=== PATIENT | female | born 1965 | race Caucasian/White ===

== ENCOUNTER 2025-03-08 12:09 | Outpatient (AMB) | payer OTHER, SELFPAY ==
--- OUTSIDE RECORDS SUMMARY | 2023-09-06 04:30 | XMS_ITS ---
Author Organization [facility] [place] Address [address] [place] [address] Care Team Providers Care Military Personnel Specialist Name Role Phone Migration, Provider Unavailable Unavailable REASON FOR VISIT Follow-up Appt Encounters Encounter Location Date Provider Diagnosis [facility], [address] [place] [address] 09/06/2023 Provider Migration Plan Of Treatment Next Appt Details Provider Name:Yocasta Nolan, 04/24/2025 11:30:00 AM, [address] [place] [address], [address], [place], [address], [phone] Progress Notes * JULIA MESSERDOB: [birth year] (59 yo F)Acc No.[id number]:09/06/2023 Progress Notes Patient: ASHLY ALBERTOANNETTE Provider: Lanie Fong :1965 A ge:58 Y S ex:Female Date:09/06/2023 Address:[address] [place] [address] [address] [facility] Subjective: * Chief Complaints: * F ollow-up Appt * Ocular Surgical History: Objective: Vision Examination: * Electronic signature of Prov ider Migration on 03/08/2025 at 03:05 PM EST Sign off status: Pending * Provider: Lanie green Migration Date: 09/06/2023 Generated for Gregorio cottrell/Cary/eTrebekasmitting on: 05/08/2024 03:05 PM EST
--- OUTSIDE RECORDS SUMMARY | 2023-09-15 05:30 | XMS_ITS ---
Author Organization [facility] [place] Address [address] [facility] [address] [facility] [place] [address] Care Team Providers Care Food Service Attendant Name Role Phone Migration, Provider Unavailable Unavailable REASON FOR VISIT Follow-up Appt Encounters Encounter Location Date Provider Diagnosis [facility], [address] [place] [address] 09/15/2023 Provider Migration Plan Of Treatment Next Appt Details Provider Name:Yocasta Nolan, 04/24/2025 11:30:00 AM, [address] [place] [address], [address], [place], [address], [phone] Progress Notes * JULIA MESSERDOB: [birth year] (59 yo F)Acc No.[id number]:09/15/2023 Progress Notes Patient: ASHLY ALBERTOANNETTE Provider: Lanie Fong :1965 A ge:58 Y S ex:Female Date:09/15/2023 Address:[address] [place] [address] [facility] Subjective: * Chief Complaints: * F ollow-up Appt * Ocular Surgical History: Objective: Vision Examination: * Electronic signature of Prov ider Migration on 03/08/2025 at 03:07 PM EST Sign off status: Pending * Provider: Lanie green Migration Date: 09/15/2023 Generated for Gregorio cottrell/Cary/Kathrynsmitting on: 05/08/2024 03:07 PM EST
--- OUTSIDE RECORDS SUMMARY | 2024-09-19 06:15 | XMS_ITS ---
Author Organization [facility] [place] Address [address] [facility] [place] [address] Care Team Providers Care Extension Service Supervisor Name Role Phone Herbert Randhawa Unavailable [phone] REASON FOR VISIT Sick Visit Encounters Encounter Location Date Provider Diagnosis [facility], [address] [place] [address] 09/19/2024 Herbert Randhawa Plan Of Treatment Next Appt Details Provider Name:Yocasta Nolan, 04/24/2025 11:30:00 AM, [address] [place] [address], [address] [facility], [place], [address], [phone] Progress Notes * GUIHAWKAGATADOB: [birth year] (59 yo F)Acc No.[id number]:09/19/2024 Progress Notes Patient: JULIA ALBERTO Provider: Donna JAIN :1965 A ge:59 Y S ex:Female Date:09/19/2024 Address:[address] [facility] Subjective: * Chief Complaints: * S ick Visit * Ocular Surgical History: Objective: Vision Examination: * Electronic signature of Evan Randhawa PA-C on 03/08/2025 at 03:07 PM EST Sign off status: Pending * Provider: Donna JAIN Date: 09/19/2024 Generated for Printi ng/Faalyg/eTransmitting on: 1 05/08/2024 03:07 PM EST
--- OUTSIDE RECORDS SUMMARY | 2024-09-29 07:30 | XMS_ITS ---
Author Organization [facility] [place] Address [address] [place] [address] Care Team Providers Care Sewage Plant Attendant Name Role Phone Migration, Provider Unavailable Unavailable REASON FOR VISIT Follow-up Appt Encounters Encounter Location Date Provider Diagnosis [facility], [address] [place] [phone] 09/29/2024 Provider Migration Plan Of Treatment Next Appt Details Provider Name:Yocasta Nolan, 04/24/2025 11:30:00 AM, [address] [place] [address], [address], [place], [address], [phone] Progress Notes * JULIA MESSERDOB: [birth year] (59 yo F)Acc No.[id number]:09/29/2024 Progress Notes Patient: ASHLY ALBERTOANNETTE Provider: Lanie Fong :1965 A ge:59 Y S ex:Female Date:09/29/2024 Address:[address] [place], [place] [address] [address] [facility] Subjective: * Chief Complaints: * F ollow-up Appt * Ocular Surgical History: Objective: Vision Examination: * Electronic signature of Prov ider Migration on 03/08/2025 at 03:06 PM EST Sign off status: Pending * Provider: Lanie green Migration Date: 09/29/2024 Generated for Gregorio cottrell/Cary/Kathrynsmitting on: 05/08/2024 03:06 PM EST
--- OUTSIDE RECORDS SUMMARY | 2025-01-22 06:30 | XMS_ITS ---
Author Organization [facility] [place] Address [address] [place] [address] [address] [place] [address] Care Team Providers Care Manager Pricing Name Role Phone Yocasta Nolan Unavailable [phone] Allergies Allergen (clinical drug ingredient) Drug/Non Drug Allergy documented on EMR Reaction Allergy Type Onset Date Status Penicillin Unknown Drug Allergy Active REASON FOR VISIT I stopped taking my Simvastatin Medications Medication SIG (Take, Route, Frequency, Duration) Notes Start Date End Date Status Ergocalciferol 1.25 MG (24523 UT) Capsule 1 capsule Orally once a week; Duration: 90 days 01/22/2025 Active SUMAtriptan Active Simvastatin 20 MG Tablet 1 tablet in the evening Orally Once a day 01/22/2025 Active Lexapro 10 MG Tablet 1 tablet Orally Onc e a day Active Social History Section Notes: N/A to the above. Problems Problem Type SNOMED Code ICD Code Onset Dates Problem Status W/U Status Risk Notes Problem Vitamin deficiency (78239545) Vitamin deficiency, unspecified (E56.9) Active confirmed Vital Signs Blood pressure systolic 135 mm Hg 01/23/20 25 Blood pressure diastolic 80 mm Hg 025 Heart Rate 73 /min 01/22/2025 Respiratory Rate 19 /min 01/22/2025 Weight 153.2 lbs 01/22/2025 Oximetry 98 % 01/22/2025 Weight-kg 69.49 kg 01/22/2025 Encounters Encounter Location Date Provider Diagnosis [address] [place] [address] 01/22/2025 Yocasta Garlandrick Vitamin deficiency, unspecified E56.9 Assessments Encounter Date Diagnosis (ICD Code) Assessment Notes Treatment Notes Treatment Clinical Notes Section Notes 01/22/2025 Vitamin deficiency, unspecified (ICD-10 - E56.9) Plan Of Treatment Medication Medication Name Sig Start Date Stop Date Notes Ergocalciferol 1.25 MG (5000 0 UT) Capsule 1 capsule Orally once a week; Duration: 90 days 01/22/2025 Next Appt Details Provider Name:Yocasta Nolan, 04/24/2025 11:30:00 AM, [address] [facility], [address], [place], [address], [phone] History and Physical Notes * HPI (History of Present Illness) Category Sub-Category Detail Notes Category Not es General Pt is a 59yo female w/ medical hx of - Patient reports weight concerns and high triglycerides from last blood tests in August. - Patient had bladder issue in August, initially suspected UTI, now resolved. 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 - Reports not regularly taking Simvastatin previously, now resumed after bad blood results. - Mentions dietary habits: high bread intake, snacks often, mentions meals include sauces, meatballs. - Denies taking vitamin D despite low levels in the past. - No known allergies (NKA). Objective: - Triglycerides: 503 mg/dL. - HDL cholesterol: 46 mg/dL (normal range). - Total cholesterol: 317 mg/dL. - Vitamin D: very low, specific value not mentioned. - A1C indicates no diabetes. Assessment: - Hypertriglyceridemia - Vitamin D deficiency Plan: - Continue Simvastatin 20 mg as previously prescribed. - Prescribe Ergocalciferol 50,000 units, one pill per week for vitamin D deficiency. - Encourage dietary modifications, refer to business travel consultant for dietary advice. - Discuss potential use of weight loss medication (Zepbound program info provided). - Schedule follow-up lab tests and telehealth appointment in one week, and in-office visit in three months to recheck labs including cholesterol, vitamin D, and thyroid function. - Provided information for weight management program with potential cost. Progress Notes * JULIA MESSERDOB: [birth year] (59 yo F)Acc No.[id number]:01/22/2025 Progress Notes Patient: JULIA ALBERTO Provider: Marlene bynum Ovidio :1965 A ge:59 Y S ex:Female Date:01/22/2025 [address] [facility] Subjective: * Chief Complaints: * I stopped taking my Simvastatin * HPI: G eneral: Pt is a 59yo female w/ medical hx of - Patient reports weight concerns and high triglycerides from last blood tests in August. - Patient had bladder issue in August, initially suspected UTI, now resolved. 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 - Reports not regularly taking Simvastatin previously, now resumed after bad blood results. - Mentions dietary habits: high bread intake, snacks often, mentions meals include sauces, meatballs. - Denies taking vitamin D despite low levels in the past. - No known allergies (NKA). Objective: - Triglycerides: 503 mg/dL. - HDL cholesterol: 46 mg/dL (normal range). - Total cholesterol: 317 mg/dL. - Vitamin D: very low, specific value not mentioned. - A1C indicates no diabetes. Assessment: - Hypertriglyceridemia - Vitamin D deficiency Plan: - Continue Simvastatin 20 mg as previously prescribed. - Prescribe Ergocalciferol 50,000 units, one pill per week for vitamin D deficiency. - Encourage dietary modifications, refer to business travel consultant for dietary advice. - Discuss potential use of weight loss medication (Zepbound program info provided). - Schedule follow-up lab tests and telehealth appointment in one week, and in- office visit in three months to recheck labs including cholesterol, vitamin D, and thyroid function. - Provided information for weight management program with potential cost. * Surgical History: rotator cuff * Family History: F ather: , diagnosed with Heart disease. M other: alive. 1 brother(s) , 3 sister(s) - healthy. 1 son(s) - healthy. . No Healthcare Proxy. Dad-passed heart attack. * Social History: N /A to the above. * Medications: T akingSimvastatin 20 MG Tablet 1 tablet in the evening Orally Once a day SUMAtriptan Lexapro 10 MG Tablet 1 tablet Orally Once a day Taking Simvastatin 20 MG Tablet 1 tablet in the evening Orally Once a day Taking SUMAtriptan Taking Lexapro 10 MG Tablet 1 tablet Orally Once a day DiscontinuedEscitalopram Oxalate 20 MG Tablet 1 tablet Orally Once a day Discontinued Escitalopram Oxalate 20 MG Tablet 1 tablet Orally Once a day * Allergies: P enicillinyesAllergies Verified. Objective: * Vitals: B P:135/80mm Hg, HR:73/min, RR:19/min, Oxygen sat %:98%, Wt:153.2lbs, Wt-k.49 kg. Assessment: * Assessment: 1. V itamin deficiency, unspecified - E56.9 Plan: * Treatment: * Electronic signature of Juanita her Nolan on 03/08/2025 at 03:06 PM EST Sign off status: Pending * Provider: Marlene Nolan Date: 0 01/22/2025 Generated for Gregorio cottrell/Cary/Edwin on: 1 05/08/2024 03:06 PM EST
--- OUTSIDE RECORDS SUMMARY | 2025-02-05 10:30 | XMS_ITS ---
Author Organization [facility] [place] Address [address] [address] [place] [address] Care Team Providers Care Cabinet Assembler Name Role Phone Yocasta Nolan Unavailable [phone] REASON FOR VISIT Tele visit medication management Medications Medication SIG (Take, Route, Frequency, Duration) Notes Start Date End Date Status Simvastatin 20 MG Tablet 1 tablet in the evening Orally Once a day 01/22/2025 Active Ergocalciferol 1.25 MG (11549 UT) Capsule 1 capsule Orally once a week; Duration: 90 days 01/22/2025 Active SUMAtriptan Active Lexapro 10 MG Tablet 1 tablet Orally Onc e a day Active Encounters Encounter Location Date Provider Diagnosis [facility], [address] [place] [address] 02/05/2025 Yocasta Sagrick Plan Of Treatment Next Appt Details Provider Name:Yocasta Nolan, 04/24/2025 11:30:00 AM, [address] [place] [address], [address] [facility], [place], [address], [phone] Progress Notes * JULIA MESSERDOB: [birth year] (59 yo F)Acc No.[id number]:02/05/2025 Patient: HAWK ALBERTOETTE Provider: Marlene Nolan :1965 A ge:59 Y S ex:Female Date:02/05/2025 Address[facility] [facility] Subjective: * Chief Complaints: * T lola visit medication management * Medications: T akingErgocalciferol 1.25 MG (25443 UT) Capsule 1 capsule Orally once a week Simvastatin 20 MG Tablet 1 tablet in the evening Orally Once a day SUMAtriptan Lexapro 10 MG Tablet 1 tablet Orally Once a day Taking Ergocalciferol 1.25 MG (33841 UT) Capsule 1 capsule Orally once a week Taking Simvastatin 20 MG Tablet 1 tablet in the evening Orally Once a day Taking SUMAtriptan Taking Lexapro 10 MG Tablet 1 tablet Orally Once a day * Electronic signature of Juanita her Nolan on 03/08/2025 at 03:07 PM EST Sign off status: Pending * Provider: Marlene Nolan Date: Generated for Gregorio cottrell/Cary/Edwin on: 05/08/2024 03:07 PM EST
--- NOTE | 2025-03-08 12:14 | A.OFFVIS_ITS ---
Intake Visit Reasons: 6m Allergies Penicillins Allergy (Unknown, Verified 03/08/25 12:15) Unknown Medication List - Last Reconciled 03/08/25 by Citlali Ma CNP ergocalciferol (vitamin D2) 1,250 mcg PO QWEEK escitalopram oxalate 10 mg PO DAILY simvastatin 20 mg PO DAILY sumatriptan succinate take 1 tab at onset of headache; if no relief, may repeat 1 tab after at least 2 hrs; max = 2 tabs/24 hrs PO 30 days HPI Comments Details: She was doing okay. Migraines are about the same. Frequency varies, usually gets few migraines back to back and then goes some time without any. Using 1/2 tab of sumatriptan as needed with good relief. Triggers include chocolate, lack of sleep, and stress. Some stress. Her 93-year-old mother with dementia was in memory care unit and was doing okay. Working from home. Sleep was okay. She started having migraine type headaches in the early 30s. She gets no aura. She has a strong family history of migraine. On average, she uses 5-6 Sumatriptan / month. She is menopausal since her mid 30s. [facility] Medical History (Updated 03/08/25 @ 12:18 by Citlali Ma CNP) Hyperlipidemia Anxiety Family History (Updated 03/08/25 @ 12:17 by Citlali Ma CNP) Mother Dementia Sister Headache Paternal Grandmother Headache Father Headache Review of Systems Const Denies chills, Denies daytime sleepiness, Denies difficulty sleeping, Denies fatigue, Denies fever(s), Denies frequent falls, Denies headache(s), Denies increased appetite, Denies poor appetite, Denies snoring, Denies weakness, Denies weight gain and Denies weight loss Eyes Denies loss of vision ENT Denies vertigo, Denies dizziness, Denies headache(s) and Denies neck pain Card Denies chest pain at rest, Denies chest pain with activity, Denies syncope, Denies leg edema, Denies palpitations, Denies dyspnea and Denies dyspnea on exertion Resp Denies cough, Denies dyspnea, Denies dyspnea on exertion and Denies snoring GI Denies abdominal pain, Denies constipation, Denies heartburn, Denies diarrhea and Denies nausea Denies urinary frequency, Denies urinary incontinence and Denies urinary urgency Musc Denies abnormal gait, Denies back pain, Denies myalgias, Denies arthralgias, Denies neck pain, Denies numbness and Denies tingling Neuro Denies abnormal gait, Denies vertigo, Denies dizziness, Denies syncope, Denies frequent falls, Denies headache(s), Denies lack of coordination, Denies loss of vision, Denies memory loss, Denies numbness, Denies Other visual disturbances, Denies restless legs, Denies seizure-like activity, Denies tingling, Denies paresthesias, Denies tremor(s) and Denies weakness Psych Denies anxiety, Denies depression, Denies auditory hallucinations, Denies memory loss and Denies visual hallucinations Endo Denies fatigue and Denies palpitations Physical Exam Const Other: General Appearance:? normal, in no acute distress. Heart:? S1, S2 normal, no murmurs. Lungs:? clear anteriorly and posteriorly. Musculoskeletal:? normal. Extremities:? no edema. Psych:? alert, oriented, cognitive function intact, cooperative with exam. Neuro Other: Abnormal Neurological Findings:?none.? Mental Status: alert and oriented X 3. Normal attention, orientation, memory, and affect. Cranial Nerves: Pupils are equal, round, and reactive to light. External ocular muscles are intact. Visual green are full, no ptosis. Face is symmetrical, no facial weakness or droop. Facial sensations are normal. Tongue protrudes in midline. Palate elevates symmetrically. Shoulder shrugging is normal Motor Examination: Normal muscle tone, bulk and strength. No atrophy or fasciculations. No drift of the extended upper extremities. DTR 2+. Plantars are flexor. Sensory Exam: Normal light touch, temperature, pinprick, vibration, and joint- position sensations. Rhomberg sign is absent. Coordination: No ataxia. No titubation. Gait Exam: Within normal limits. Cerebellar Signs: Pgkkui-ro-ohqa is okay. Extrapyramidal System: No tremor, rigidity with normal facial expressions. No bradykinesia. No bradyphrenia. Normal arm swing and posture. No propulsion or retropulsion. Speech: Normal. Assessment & Plan Assessment & Plan (1) Migraine: Code(s): G43.909 - Migraine, unspecified, not intractable, without status migrainosus Category: Medical Qualifiers: Migraine type: unspecified Status migrainosus presence: without status migrainosus Intractability: not intractable Qualified Code(s): G43.909 - Migraine, unspecified, not intractable, without status migrainosus Plan: Continue sumatriptan 100mg 1 tablet as needed for migraine. Coding Level of Care Code Est Pt Level 3 (12028) Diagnoses Migraine without status migrainosus, not intractable, unspecified migraine type G43.909 Migraine type: unspecified Status migrainosus presence: without status migrainosus Intractability: not intractable
--- OUTSIDE RECORDS SUMMARY | 2025-03-08 15:06 | XMS_ITS ---
[facility] Name [facility] Care Team Organization Name Specialty Phone Email Start Date End Da te [facility] 03/10/2022 [facility]
--- OUTSIDE RECORDS SUMMARY | 2025-03-08 15:07 | XMS_ITS | Patient Health Record ---
Author Organization [facility] [place] Address [address] [address] [address] [facility] [address] [place] [address] Care Team Providers Care Terminal Carman Name Role Phone Herbert Randhawa Unavailable [phone] Migration, Provider Unavailable Unavailable Yocasta Nolan Unavailable [phone] Allergies Allergen (clinical drug ingredient) Drug/Non Drug Allergy documented on EMR Reaction Allergy Type Onset Date Status Penicillin Unknown Drug Allergy Active Reason For Referral No Information Medications Medication SIG (Take, Route, Frequency, Duration) Notes Start Date End Date Status Simvastatin 20 MG Tablet 1 tablet in the evening Orally Once a day 01/22/2025 Active Ergocalciferol 1.25 MG (38700 UT) Capsule 1 capsule Orally once a week; Duration: 90 days 01/22/2025 Active SUMAtriptan Active Lexapro 10 MG Tablet 1 tablet Orally Onc e a day Active Social History Section Notes: N/A to the above. Problems Problem Type SNOMED Code ICD Code Onset Dates Problem Status W/U Status Risk Notes Problem Vitamin deficiency (99252231) Vitamin deficiency, unspecified (E56.9) Active confirmed Vital Signs Heart Rate 73 /min 01/22/2025 Respiratory Rate 19 /min 01/22/2025 Oximetry 98 % 01/22/2025 Blood pressure diastolic 80 mm Hg 01/22/2025 Weight-kg 69.49 kg 01/22/2025 Blood pressure systolic 135 mm Hg 01/22/2025 Weight 153.2 lbs 01/22/2025 Encounters Encounter Location Date Provider Diagnosis [facility] [address] [address] 09/19/2024 Herbert Randhawa [facility] [address] [address] 09/29/2024 Provider Migration [address] [address] [place] [address] 01/22/2025 Yocasta Nolan Vitamin deficiency, unspecified E56.9 [facility], [address] [place] [address] 02/05/2025 Yocasta Nolan Assessments Encounter Date Diagnosis (ICD Code) Assessment Notes Treatment Notes Treatment Clinical Notes Section Notes 01/22/2025 Vitamin deficiency, unspecified (ICD-10 - E56.9) Plan Of Treatment Next Appt Details Provider Name:Yocasta Nolan, 04/24/2025 11:30:00 AM, [address] [place] [address], [address], [place], [address], [phone] Insurance Providers Payer Name Payer Address Payer Phone Subscriber Number Group Number Insured Name Patient Relationship to Insured Coverage Start Date Coverage End Date [facility] [address] [place] [address] [id number] JULIA MESSER Self - patient is the insured Medical (General) History Surgical History Surgery Date(Month/Year) rotator cuff
--- OUTSIDE RECORDS SUMMARY | 2025-03-08 15:07 | XMS_ITS | Clinical Summary ---
Author Organization [facility] Address [address] [place] [address] Care Team Providers Care Painter Supervisor Name Role Phone Wilmar Barcenas MD Primary Care Provider [phone] Social History Tobacco Use Types Packs/Day Years Used Date Smoking Tobacco: Never Assessed Comments Unknown Sex and Gender Information Value Date Recorded Sex Assigned at Not on file Legal Sex Female 1:23 PM EST Gender Identity Not on file Sexual Orientation Not on file Plan of Treatment Health Maintenance Due Date Last Done Comments Hepatitis C Virus Screening 1965 HIV Screening 1980 DTaP/Tdap/Td Vaccines (1 - Tdap) 1986 Hepatitis B Vaccines (1 of 3 - 19+ 3-dose series) 03/03 Pneumococcal Vaccines 50+ (1 of 1 - PCV) 2017 Zoster (Shingles) Vaccine (1 of 2) 2017 COVID-19 Vaccine (1 - season) 2025 RSV Vaccine 50 years and old er and Patients (1 - 1-dose 75+ series) 2042 Care Teams Painter Supervisor Relationship Specialty Start Date End Date Wilmar Barcenas MD [address] [place] [id number] PCP - General Family Medicine 05/09/21
--- OUTSIDE RECORDS SUMMARY | 2025-03-08 15:07 | XMS_ITS | Encounter Summary ---
Author Organization [facility] Address [address] [place] [address] Care Team Providers Care Kinesiology Professor Name Role Phone Herbert Randhawa Primary Care Provider [phone] Encounter Details Date Type Department Care Team (Late st Contact Info) Description 09/19/2024 Lab Requisition [facility] - Main Lab [address] [facility] [place] [id number] Herbert Randhawa PA [address] [facility] [address] [place] [address] Urinary tract infection, site not specified; Hyperlipidemia, unspecified; Other care home (current) drug therapy; Vitamin D deficiency, unspecified Social History Tobacco Use Types Packs/Day Years Used Date Smoking Tobacco: Never Assessed Comments Unknown Sex and Gender Information Value Date Recorded Sex Assigned at Female 10/06/2024 2:25 PM EDT Legal Sex Female 1:51 AM EST Gender Identity Female 10/06/2024 2:25 PM EDT Sexual Orientation Not on file documented as of this encounter Plan of Treatment Not on file documented as of this encounter Procedures Procedure Name Priority Date/Time Associated Diagnosis Comments URINALYSIS WITH REFLEX MICROSCOPIC AND CULTURE Routine 09/19/2024 12:00 AM EDT Urinary tract infection, site not specified Hyperlipidemia, unspecified Other care home (current) drug therapy Vitamin D deficiency, unspecified ERICKSON URINE CULTURE TUBE Routine 09/19/2024 12:00 AM EDT Urinary tract infection, site not specified Hyperlipidemia, unspecified Other care home (current) drug therapy Vitamin D deficiency, unspecified SST - GOLD Routine 09/19/2024 12:00 AM EDT Urinary tract infection, site not specified Hyperlipidemia, unspecified Other care home (current) drug therapy Vitamin D deficiency, unspecified LIPID PANEL WITH REFLEX TO DIRECT LDL Routine 09/19/2024 12:00 AM EDT Urinary tract infection, site not specified Hyperlipidemia, unspecified Other care home (current) drug therapy Vitamin D deficiency, unspecified CBC WITH AUTO DIFFERENTIAL Routine 09/19/2024 12:00 AM EDT Urinary tract infection, site not specified Hyperlipidemia, unspecified Other terminal block assembler (current) drug therapy Vitamin D deficiency, unspecified YELLOW URINE NO ADDITIVE Routine 09/19/2024 12:00 AM EDT Urinary tract infection, site not specified Hyperlipidemia, unspecified Other terminal block assembler (current) drug therapy Vitamin D deficiency, unspecified VITAMIN D 25 HYDROXY Routine 09/19/2024 12:00 AM EDT Urinary tract infection, site not specified Hyperlipidemia, unspecified Other care home (current) drug therapy Vitamin D deficiency, unspecified URINALYSIS WITH REFLEX MICROSCOPIC AND CULTURE Routine 09/19/2024 12:00 AM EDT Urinary tract infection, site not specified Hyperlipidemia, unspecified Other terminal block assembler (current) drug therapy Vitamin D deficiency, unspecified CBC AND DIFFERENTIAL Routine 09/19/2024 12:00 AM EDT Urinary tract infection, site not specified Hyperlipidemia, unspecified Other terminal block assembler (current) drug therapy Vitamin D deficiency, unspecified C-REACTIVE PROTEIN Routine 09/19/2024 12 :00 AM EDT Urinary tract infection, site not specified Hyperlipidemia, unspecified Other care home (current) drug therapy Vitamin D deficiency, unspecified THYROID STIMULATING HORMONE Routine 09/19/2024 12:00 AM EDT Urinary tract infection, site not specified Hyperlipidemia, unspecified Other care home (current) drug therapy Vitamin D deficiency, unspecified THYROXINE FREE Routine 09/19/2024 12:00 AM EDT Urinary tract infection, site not specified Hyperlipidemia, unspecified Other terminal block assembler (current) drug therapy Vitamin D deficiency, unspecified MAGNESIUM Routine 09/19/2024 12:00 AM EDT Urinary tract infection, site not specified Hyperlipidemia, unspecified Other terminal block assembler (current) drug therapy Vitamin D deficiency, unspecified LDL CHOLESTEROL, DIRECT Routine 09/19/2024 12:00 AM EDT Urinary tract infection, site not specified Hyperlipidemia, unspecified Other terminal block assembler (current) drug therapy Vitamin D deficiency, unspecified HEMOGLOBIN A1C Routine 09/19/2024 12:00 AM EDT Urinary tract infection, site not specified Hyperlipidemia, unspecified Other terminal block assembler (current) drug therapy Vitamin D deficiency, unspecified VITAMIN B12 Routine 09/19/2024 12:00 AM EDT Urinary tract infection, site not specified Hyperlipidemia, unspecified Other terminal block assembler (current) drug therapy Vitamin D deficiency, unspecified COMPREHENSIVE METABOLIC PANEL Routine 09/19/2024 12:00 AM EDT Urinary tract infection, site not specified Hyperlipidemia, unspecified Other terminal block assembler (current) drug therapy Vitamin D deficiency, unspecified documented in this encounter Results * (ABNORMAL) LDL cholesterol, direct (09/19/2024 12:00 AM EDT) LDL Direct 160(H) <=100 mg/dL LAB CHEMISTRY METHOD 09/19/2024 8:09 PM EDT [facility] Blood Venous blood specimen / Unknown 09/19/2024 09/19/2024 6:09 PM EDT us Herbert JAIN LAB BLOOD ORDERABLES Final Res ult [facility] [address] [place] [address], [place] [phone] * Yellow urine no additive (09/19/2024 12:00 AM EDT) Extra Tube Hold for add-ons. 09/19/2024 8:01 PM EDT [facility] Comment:Auto resulted. Urine Urine specimen obtained by clean catch procedure / Unknown 09/19/2024 09/19/2024 6:44 PM EDT us Herbert JAIN LAB URINE ORDERABLES Final Res ult [facility] [address] [place] [address], [place] [phone] * Erickson urine culture tube (09/19/2024 12:00 AM EDT) Extra Tube Hold for add-ons. 09/19/2024 8:01 PM EDT [facility] Comment:Auto resulted. Urine Urine specimen obtained by clean catch procedure / Unknown 09/19/2024 09/19/2024 6:44 PM EDT us Herbert JAIN LAB URINE ORDERABLES Final Res ult [facility] [address] [place] [address], [place] [phone] * SST tube (09/19/2024 12:00 AM EDT) Extra Tube Hold for add-ons. 09/19/2024 8:01 PM EDT [facility] Comment:Auto resulted. Blood Venous blood specimen / Unknown 09/19/2024 09/19/2024 6:44 PM EDT us Herbert JAIN LAB BLOOD ORDERABLES Final Res ult [facility] [address] [place] [address], [place] [phone] * Urinalysis with reflex microscopic and culture (09/19/2024 12:00 AM EDT) Specific [place] Urine 1.022 1.003 - 1.030 LAB URINALYSIS - AUTOMATED METHOD 09/19/2024 7:23 PM [facility] pH, Urine 5.5 5.0 - 8.0 pH LAB URINALYSIS - AUTOMATED METHOD 09/19/2024 7:23 PM [facility] Leukocytes, Urine Negative Negative LAB URINALYSIS - AUTOMATED METHOD 09/19/2024 7:23 PM [facility] Nitrite, Urine Negative Negative LAB URINALYSIS - AUTOMATED METHOD 09/19/2024 7:23 PM [facility] Protein, Urine Negative <=Trace mg/dL LAB URINALYSIS - AUTOMATED METHOD 09/19/2024 7:23 PM [facility] Glucose, Urine Negative Negative mg/dL LAB URINALYSIS - AUTOMATED METHOD 09/19/2024 7:23 PM [facility] Ketones, Urine Negative Negative mg/dL LAB URINALYSIS - AUTOMATED METHOD 09/19/2024 7:23 PM [facility] Urobilinogen, Urine 0.2 0.2 - 1.0 mg/dL LAB URINALYSIS - AUTOMATED METHOD 09/19/2024 7:23 PM [facility] Bilirubin, Urine Negative Negative LAB URINALYSIS - AUTOMATED METHOD 09/19/2024 7:23 PM [facility] Blood, Urine Negative Negative LAB URINALYSIS - AUTOMATED METHOD 09/19/2024 7:23 PM [facility] Urine Urine specimen obtained by clean catch procedure / Unknown 09/19/2024 09/19/2024 6:09 PM EDT us Herbert JAIN LAB URINE ORDERABLES Final Res ult [facility] [address] [place] [address], [place] [phone] * (ABNORMAL) CBC auto differential (09/19/2024 12:00 AM EDT) WBC 4.7(L) 4.8 - 10.8 K/mcL LAB HEMETOLOGY METHOD 09/19/2024 7:22 PM EDT [facility] RBC 4.60 3.80 - 4.80 M/mcL LAB HEMETOLOGY METHOD 09/19/2024 7:22 PM EDT [facility] Hemoglobin 12.8 11.5 - 16.0 g/dL LAB HEMETOLOGY METHOD 09/19/2024 7:22 PM EDT [facility] Hematocrit 39.6 35.0 - 47.0 % LAB HEMETOLOGY METHOD 09/19/2024 7:22 PM EDT [facility] MCV 86.8 79.0 - 98.0 FL LAB HEMETOLOGY METHOD 09/19/2024 7:22 PM EDT [facility] MCH 28.1 27.0 - 32.0 pcg LAB HEMETOLOGY METHOD 09/19/2024 7:22 PM EDT [facility] MCHC 32.3 32.0 - 37.0 g/dL LAB HEMETOLOGY METHOD 09/19/2024 7:22 PM EDT [facility] RDW 13.8 11.0 - 15.0 % LAB HEMETOLOGY METHOD 09/19/2024 7:22 PM EDT [facility] Platelets 249 130 - 400 K/mcL LAB HEMETOLOGY METHOD 09/19/2024 7:22 PM EDT [facility] MPV 10.8 7.0 - 11.0 FL LAB HEMETOLOGY METHOD 09/19/2024 7:22 PM [facility] NRBC 0.0 <1.0 % LAB HEMETOLOGY METHOD 09/19/2024 7:22 PM [facility] NRBC Absolute 0.00 <0.10 K/mcL LAB HEMETOLOGY METHOD 09/19/2024 7:22 PM [facility] Neutrophils Relative 48.5 % LAB HEMETOLOGY METHOD 09/19/2024 7:22 PM [facility] Lymphocytes Relative 42.3 % LAB HEMETOLOGY METHOD 09/19/2024 7:22 PM [facility] Monocytes Relative 6.6 % LAB HEMETOLOGY METHOD 09/19/2024 7:22 PM [facility] Eosinophils Relative 1.7 % LAB HEMETOLOGY METHOD 09/19/2024 7:22 PM [facility] Basophils Relative 0.9 % LAB HEMETOLOGY METHOD 09/19/2024 7:22 PM [facility] Immature Granulocytes Relative 0.0 % LAB HEMETOLOGY METHOD 09/19/2024 7:22 PM [facility] Neutrophils Absolute 2.28 1.50 - 7.00 K/mcL LAB HEMETOLOGY METHOD 09/19/2024 7:22 PM [facility] Lymphocytes Absolute 1.99 1.00 - 5.00 K/mcL LAB HEMETOLOGY METHOD 09/19/2024 7:22 PM [facility] Monocytes Absolute 0.31 0.20 - 1.00 K/mcL LAB HEMETOLOGY METHOD 09/19/2024 7:22 PM [facility] Eosinophils Absolute 0.08 0.00 - 0.50 K/mcL LAB HEMETOLOGY METHOD 09/19/2024 7:22 PM [facility] Basophils Absolute 0.04 0.00 - 0.20 K/mcL LAB HEMETOLOGY METHOD 09/19/2024 7:22 PM EDT [facility] Immature Granulocytes Absolute 0.00 0.00 - 0.03 K/[facility] LAB HEMETOLOGY METHOD 09/19/2024 7:22 PM EDT [facility] Blood Venous blood specimen / Unknown 09/19/2024 09/19/2024 6:09 PM EDT us Herbert JAIN LAB BLOOD ORDERABLES Final Res ult [facility] [address] [place] [address], [place] [phone] * (ABNORMAL) Vitamin D 25 hydroxy (09/19/2024 12:00 AM EDT) Vit D, 25-Hydroxy 8.7(L) 30.0 - 80.0 ng/mL LAB CHEMISTRY METHOD 09/19/2024 7:59 PM EDT [facility] Blood Venous blood specimen / Unknown 09/19/2024 09/19/2024 6:09 PM EDT us Herbert JAIN LAB BLOOD ORDERABLES Final Res ult [facility] [address] [place] [address], [place] [phone] * Thyroid stimulating hormone (09/19/2024 12:00 AM EDT) TSH 1.03 0.40 - 4.00 mcIU/mL LAB CHEMISTRY METHOD 09/19/2024 7:58 PM EDT [facility] Blood Venous blood specimen / Unknown 09/19/2024 09/19/2024 6:09 PM EDT us Herbert JAIN LAB BLOOD ORDERABLES Final Res ult Performing Organization Address [facility]/ZIP Co de Phone Number [facility] [address] [place] [address], * Magnesium (09/19/2024 12:00 AM EDT) Magnesium 2.1 1.9 - 2.6 mg/dL LAB CHEMISTRY METHOD 09/19/2024 7:36 PM EDT [facility] Blood Venous blood specimen / Unknown 09/19/2024 09/19/2024 6:09 PM EDT Herbert JAIN LAB BLOOD ORDERABLES Final Res ult Performing Organization Address [facility] de Phone Number [facility] [address] [place] [address], * Hemoglobin A1c (09/19/2024 12:00 AM EDT) [facility] Signature Hemoglobin A1C 5.1 <6.5 % LAB CHEMISTRY METHOD 09/22/2024 10:44 AM EDT [facility] Mean Bld Glu Estim. 100 mg/dL LAB CHEMISTRY METHOD 09/22/2024 10:44 AM EDT [facility] Blood Venous blood specimen / Unknown 09/19/2024 09/19/2024 6:09 PM EDT Herbert JAIN LAB BLOOD ORDERABLES Final Res ult Performing Organization Address [facility]/ZIP Co de Phone Number [facility] [address] [place] [address], [place] [phone] * Thyroxine free (09/19/2024 12:00 AM EDT) Free T4 1.25 0.70 - 1.80 ng/dL LAB CHEMISTRY METHOD 09/19/2024 7:58 PM EDT [facility] Blood Venous blood specimen / Unknown 09/19/2024 09/19/2024 6:09 PM EDT us Herbert JAIN LAB BLOOD ORDERABLES Final Res ult Performing Organization Address City/[facility]/ZIP Co de Phone Number [facility] [address] [place] [address], [place] [phone] * C-reactive protein (09/19/2024 12:00 AM EDT) [facility] C-Reactive Protein <0.29 <=0.50 mg/dL LAB CHEMISTRY METHOD 09/19/2024 7:36 PM EDT [facility] Blood Venous blood specimen / Unknown 09/19/2024 09/19/2024 6:09 PM EDT Herbert JAIN LAB BLOOD ORDERABLES Final Res ult Performing Organization Address [facility]/ZIP Co de Phone Number [facility] [address] [place] [address], [place] [phone] * Vitamin B12 (09/19/2024 12:00 AM EDT) [facility] Vitamin B-12 531 250 - 900 pcg/mL LAB CHEMISTRY METHOD 09/19/2024 7:58 PM EDT [facility] Blood Venous blood specimen / Unknown 09/19/2024 09/19/2024 6:09 PM EDT us Herbert JAIN LAB BLOOD ORDERABLES Final Res ult Performing Organization Address City/[facility]/ZIP Co de Phone Number [facility] [address] [place] [address], [place] [phone] * (ABNORMAL) Lipid panel with reflex to direct LDL (09/19/2024 12:00 AM EDT) Cholesterol 317(H) 0 - 200 mg/dL LAB CHEMISTRY METHOD 09/19/2024 7:58 PM EDT [facility] Triglycerides 503(H) 0 - 150 mg/dL LAB CHEMISTRY METHOD 09/19/2024 7:58 PM EDT [facility] HDL 46 >=40 mg/dL LAB CHEMISTRY METHOD 09/19/2024 7:58 PM EDT [facility] LDL Calculated LAB CHEMISTRY METHOD 09/19/2024 7:58 PM EDT [facility] Comment: Unable to calculate when triglycerides >400 mg/dL. Triglyceride value is >= 500. Calculated LDL is not meaningful. Direct LDL has been added. VLDL Cholesterol Lul LAB CHEMISTRY METHOD 09/19/2024 7:58 PM EDT [facility] Comment:Unable to calculate when triglycerides >400 mg/dL. Non HDL Chol. (LDL+VLDL) LAB CHEMISTRY METHOD 09/19/2024 7:58 PM EDT [facility] Comment:Unable to calculate when triglycerides >400 mg/dL. Chol/HDL Ratio 6.9(H) 0.0 - 4.4 LAB CHEMISTRY METHOD 09/19/2024 7:58 PM EDT [facility] Blood Venous blood specimen / Unknown 09/19/2024 09/19/2024 6:09 PM EDT us Herbert JAIN LAB BLOOD ORDERABLES Final Res ult [facility] [address] [place] [address], [place] [phone] * (ABNORMAL) Comprehensive metabolic panel (09/19/2024 12:00 AM EDT) Pathologist [facility] Sodium 138 133 - 145 mmol/L LAB CHEMISTRY METHOD 09/19/2024 7:58 PM EDT [facility] Potassium 3.9 3.5 - 5.5 mmol/L LAB CHEMISTRY METHOD 09/19/2024 7:58 PM [facility] Chloride 104 96 - 110 mmol/L LAB CHEMISTRY METHOD 09/19/2024 7:58 PM [facility] CO2 29 21 - 32 mmol/L LAB CHEMISTRY METHOD 09/19/2024 7:58 PM [facility] Anion Gap 5 3 - 11 LAB CHEMISTRY METHOD 09/19/2024 7:58 PM [facility] Glucose 93 70 - 100 mg/dL LAB CHEMISTRY METHOD 09/19/2024 7:58 PM [facility] BUN 19 5 - 25 mg/dL LAB CHEMISTRY METHOD 09/19/2024 7:58 PM [facility] Creatinine 0.71 0.50 - 1.10 mg/dL LAB CHEMISTRY METHOD 09/19/2024 7:58 PM [facility] eGFR 99 >=60 mL/min/1. 73m2 LAB CHEMISTRY METHOD 09/19/2024 7:58 PM [facility] Comment:Calculation based on the Chronic Kidney Disease Epidemiology Collaboration (CKD-EPI) equation refit without adjustment for race. BUN/Creatinine Ratio 26.8 LAB CHEMISTRY METHOD 09/19/2024 7:58 PM [facility] Calcium 8.9 8.5 - 10.5 mg/dL LAB CHEMISTRY METHOD 09/19/2024 7:58 PM [facility] AST (SGOT) 24 10 - 42 unit/L LAB CHEMISTRY METHOD 09/19/2024 7:58 PM [facility] ALT (SGPT) 20 10 - 60 unit/L LAB CHEMISTRY METHOD 09/19/2024 7:58 PM [facility] Alkaline Phosphatase 115 42 - 121 unit/L LAB CHEMISTRY METHOD 09/19/2024 7:58 PM [facility] Total Protein 8.1(H) 6.0 - 8.0 g/dL LAB CHEMISTRY METHOD 09/19/2024 7:58 PM EDT [facility] Albumin 4.3 3.2 - 5.0 g/dL LAB CHEMISTRY METHOD 09/19/2024 7:58 PM EDT [facility] Total Bilirubin 0.4 0.0 - 1.4 mg/dL LAB CHEMISTRY METHOD 09/19/2024 7:58 PM EDT [facility] Blood Venous blood specimen / Unknown 09/19/2024 09/19/2024 6:09 PM EDT us Herbert JAIN LAB BLOOD ORDERABLES Final Res ult [facility] [address] [place] [address], [place] [phone] documented in this encounter Visit Diagnoses Diagnosis Urinary tract infection, site not specified Hyperlipidemia, unspecified Other care home (current) drug therapy Vitamin D deficiency, unspecified documented in this encounter Care Teams Kinesiology Professor Relationship Specialty Start Date End Date Herbert Randhawa PA [facility] [address] [place] [id number] PCP - General Primary Care 10/02/24 documented as of this encounter
--- OUTSIDE RECORDS SUMMARY | 2025-03-08 15:08 | XMS_ITS | Encounter Summary ---
Author Organization [facility] Address [address] [place] [address] Care Team Providers Care Field Map Technician Name Role Phone Wilmar Barcenas MD Primary Care Provider [phone] Encounter Details Date Type Department Care Team (Late st Contact Info) Description 06/23/2021 Scanned Document GENERIC EXTERNAL DATA DEPARTMENT Wilmar Barcenas MD [address] [address] Social History Tobacco Use Types Packs/Day Years Used Date Smoking Tobacco: Never Assessed Comments Unknown Sex and Gender Information Value Date Recorded Sex Assigned at Not on file Legal Sex Female 1:23 PM EST Gender Identity Not on file Sexual Orientation Not on file documented as of this encounter Plan of Treatment Not on file documented as of this encounter Visit Diagnoses Not on filedocumented in this encounter Care Teams Field Map Technician Relationship Specialty Start Date End Date Wilmar Barcenas MD [address] [address] PCP - General Family Medicine 05/09/21 documented as of this encounter
--- OUTSIDE RECORDS SUMMARY | 2025-03-08 15:08 | XMS_ITS | Clinical Summary ---
Author Organization [address] Address [address] [place] [phone] Phone Care Team Providers Care Quality Nurse Name Role Phone Herbert Randhawa Primary Care Provider [phone] Social History Tobacco Use Types Packs/Day Years Used Date Smoking Tobacco: Never Assessed Comments Unknown Sex and Gender Information Value Date Recorded Sex Assigned at Female 10/06/2024 2:25 PM EDT Legal Sex Female 1:51 AM EST Gender Identity Female 10/06/2024 2:25 PM EDT Sexual Orientation Not on file Plan of Treatment Health Maintenance Due Date Last Done Comments Colorectal Cancer Screening: Colonoscopy 1967 DTaP,Tdap,and Td Vaccines (1 - Tdap) 1986 Hepatitis B Vaccines (1 of 3 - 19+ 3-dose series) 1986 Cervical Cancer Screening: Pap Smear 1988 Pneumococcal Vaccine: 50+ Years (1 of 1 - PCV) 2017 Zoster Vaccines (1 of 2) 2017 HIV Screening 04/05/2022 Hepatitis C Screening 04/05/2022 Social Influencers of Health Screening 04/05/2022 Depression Screening 05/03/2024 COVID-19 Vaccine ( season) 2025 02/23/2022, 03/24/2021, 07/21/2020, Additional history exists Influenza Vaccine (#1) 2025 , 03/08/2023, 01/23/2022, Additional history exists Breast Cancer Screening 03/02/2026 03/02/20 24, 11/20/2022, 11/17/2021, Additional history exists Cholesterol Screening (Lipid Panel) 01/22/2030 01/22/2025, 09/19/2024, 09/19/2024 RSV Immunization Adult Patients (1 - 1-dose 75+ series) 2042 MMR Vaccines Aged Out 11/06/2018 No longer eligi ble based on patient's age to complete this topic HIB Vaccines Aged Out No longer eligi ble based on patient's age to complete this topic HPV Vaccines Aged Out No longer eligi ble based on patient's age to complete this topic Hepatitis A Vaccines Aged Out No long er eligible based on patient's age to complete this topic IPV Vaccines Aged Out No longer eligi ble based on patient's age to complete this topic Meningococcal ACWY Vaccine Aged Out N o longer eligible based on patient's age to complete this topic Meningococcal B Vaccine Aged Out No l onger eligible based on patient's age to complete this topic RSV Immunization Patients Under 20 months Aged Out No longer eligible based on patient's age to complete this topic Varicella Vaccines Aged Out No longer eligible based on patient's age to complete this topic Procedures Procedure Name Priority Date/Time Associated Diagnosis Comments VITAMIN D 25 HYDROXY Routine 01/22/2025 12:19 PM EDT Encounter for general adult medical examination with abnormal findings Hyperlipemia Myxedema heart disease Avitaminosis D THYROID STIMULATING HORMONE Routine 01/22/2025 12:19 PM EDT Encounter for general adult medical examination with abnormal findings Hyperlipemia Myxedema heart disease Avitaminosis D THYROXINE FREE Routine 01/22/2025 12:19 PM EDT Encounter for general adult medical examination with abnormal findings Hyperlipemia Myxedema heart disease Avitaminosis D COMPLETE BLOOD COUNT Routine 01/22/2025 12:19 PM EDT Encounter for general adult medical examination with abnormal findings Hyperlipemia Myxedema heart disease Avitaminosis D LIPID PANEL WITH REFLEX TO DIRECT LDL Routine 01/22/2025 12:19 PM EDT Encounter for general adult medical examination with abnormal findings Hyperlipemia Myxedema heart disease Avitaminosis D COMPREHENSIVE METABOLIC PANEL Routine 01/22/2025 12:19 PM EDT Encounter for general adult medical examination with abnormal findings Hyperlipemia Myxedema heart disease Avitaminosis D MADHURI SCREENING DIGITAL Routine 03/02/2024 3:26 PM EDT from Last 3 Months or Most Recently Relevant to Health Maintenance Results * (ABNORMAL) Lipid panel with reflex to direct LDL (01/22/2025 12:19 PM EDT) Cholesterol 250(H) 0 - 200 mg/dL LAB CHEMISTRY METHOD 01/22/2025 3:35 PM EDT [facility] Triglycerides 446(H) 0 - 150 mg/dL LAB CHEMISTRY METHOD 01/22/2025 3:35 PM [facility] HDL 39(L) >=40 mg/dL LAB CHEMISTRY METHOD 01/22/2025 3:35 PM T [facility] LDL Calculated 122(H) 0 - 100 mg/dL LAB CHEMISTRY METHOD 01/22/2025 3:35 PM T [facility] Comment: Unable to calculate when triglycerides >400 mg/dL. Estimated LDL Calculated using equation: Total cholesterol - HDL cholesterol - (Triglycerides/5) VLDL Cholesterol Lul 89.2 mg/dL LAB CHEMISTRY METHOD 01/22/2025 3:35 PM T [facility] Comment:Unable to calculate when triglycerides >400 mg/dL. Non HDL Chol. (LDL+VLDL) 211(H) <145 mg/dL LAB CHEMISTRY METHOD 01/22/2025 3:35 PM [facility] Comment:Unable to calculate when triglycerides >400 mg/dL. Chol/HDL Ratio 6.4(H) 0.0 - 4.4 LAB CHEMISTRY METHOD 01/22/2025 3:35 PM [facility] Blood Venous blood specimen / Unknown Venipuncture / Unknown 01/22/2025 12:19 PM EDT 01/22/2025 1:37 PM EDT Kimberly Coburn LAB BLOOD ORDERABLES Final Res ult Performing Organization Address [facility]/ZIP Co de Phone Number [facility] [address] [place] [address], [place] [phone] * (ABNORMAL) Vitamin D 25 hydroxy (01/22/2025 12:19 PM EDT) [facility] Vit D, 25-Hydroxy 9.7(L) 30.0 - 80.0 ng/mL LAB CHEMISTRY METHOD 01/22/2025 4:24 PM EDT [facility] Blood Venous blood specimen / Unknown Venipuncture / Unknown 01/22/2025 12:19 PM EDT 01/22/2025 1:37 PM EDT Kimberly Coburn LAB BLOOD ORDERABLES Final Res ult Performing Organization Address [facility]/ZIP Co de Phone Number [facility] [address] [place] [address], [place] [phone] * Complete blood count (01/22/2025 12:19 PM EDT) [facility] WBC 5.2 4.8 - 10.8 K/mcL LAB HEMETOLOGY METHOD 01/22/2025 1:53 PM EDT [facility] RBC 4.50 3.80 - 4.80 M/[facility] LAB HEMETOLOGY METHOD 01/22/2025 1:53 PM EDT [facility] Hemoglobin 12.3 11.5 - 16.0 g/dL LAB HEMETOLOGY METHOD 01/22/2025 1:53 PM EDT [facility] Hematocrit 37.8 35.0 - 47.0 % LAB HEMETOLOGY METHOD 01/22/2025 1:53 PM EDT [facility] MCV 84.6 79.0 - 98.0 FL LAB HEMETOLOGY METHOD 01/22/2025 1:53 PM EDT [facility] MCH 27.5 27.0 - 32.0 pcg LAB HEMETOLOGY METHOD 01/22/2025 1:53 PM EDT [facility] MCHC 32.5 32.0 - 37.0 g/dL LAB HEMETOLOGY METHOD 01/22/2025 1:53 PM EDT [facility] RDW 13.4 11.0 - 15.0 % LAB HEMETOLOGY METHOD 01/22/2025 1:53 PM EDT [facility] Platelets 189 130 - 400 K/mcL LAB HEMETOLOGY METHOD 01/22/2025 1:53 PM EDT [facility] MPV 10.1 7.0 - 11.0 FL LAB HEMETOLOGY METHOD 01/22/2025 1:53 PM EDT [facility] NRBC 0.0 <1.0 % LAB HEMETOLOGY METHOD 01/22/2025 1:53 PM EDT [facility] NRBC Absolute 0.00 <0.10 K/mcL LAB HEMETOLOGY METHOD 01/22/2025 1:53 PM EDT [facility] Blood Venous blood specimen / Unknown Venipuncture / Unknown 01/22/2025 12:19 PM EDT 01/22/2025 1:42 PM EDT us Kimberly Coburn NP LAB BLOOD ORDERABLES Final Res ult [facility] [address] [place] [address], * Thyroid stimulating hormone (01/22/2025 12:19 PM EDT) TSH 0.69 0.40 - 4.00 mcIU/mL LAB CHEMISTRY METHOD 01/22/2025 4:18 PM EDT [facility] Blood Venous blood specimen / Unknown Venipuncture / Unknown 01/22/2025 12:19 PM EDT 01/22/2025 1:37 PM EDT Kimberly Coburn LAB BLOOD ORDERABLES Final Res ult Performing Organization Address [facility]/ZIP Co de Phone Number [facility] [address] [place] [address], [place] [phone] * Thyroxine free (01/22/2025 12:19 PM EDT) Free T4 1.37 0.70 - 1.80 ng/dL LAB CHEMISTRY METHOD 01/22/2025 4:18 PM EDT [facility] Blood Venous blood specimen / Unknown Venipuncture / Unknown 01/22/2025 12:19 PM EDT 01/22/2025 1:37 PM EDT [facility] Final Res ult Performing Organization Address [facility]/ZIP Co de Phone Number [facility] [address] [place] [address], [place] [phone] * Comprehensive metabolic panel (01/22/2025 12:19 PM EDT) Sodium 138 133 - 145 mmol/L LAB CHEMISTRY METHOD 01/22/2025 3:32 PM EDT [facility] Potassium 3.7 3.5 - 5.5 mmol/L LAB CHEMISTRY METHOD 01/22/2025 3:32 PM EDT [facility] Chloride 104 96 - 110 mmol/L LAB CHEMISTRY METHOD 01/22/2025 3:32 PM EDT [facility] CO2 29 21 - 32 mmol/L LAB CHEMISTRY METHOD 01/22/2025 3:32 PM EDT [facility] Anion Gap 5 3 - 11 LAB CHEMISTRY METHOD 01/22/2025 3:32 PM [facility] Glucose 100 70 - 100 mg/dL LAB CHEMISTRY METHOD 01/22/2025 3:32 PM [facility] BUN 20 5 - 25 mg/dL LAB CHEMISTRY METHOD 01/22/2025 3:32 PM [facility] Creatinine 0.66 0.50 - 1.10 mg/dL LAB CHEMISTRY METHOD 01/22/2025 3:32 PM [facility] eGFR 102 >=60 mL/min/1. 73m2 LAB CHEMISTRY METHOD 01/22/2025 3:32 PM [facility] Comment:Calculation based on the Chronic Kidney Disease Epidemiology Collaboration (CKD-EPI) equation refit without adjustment for race. BUN/Creatinine Ratio 30.3 LAB CHEMISTRY METHOD 01/22/2025 3:32 PM [facility] Calcium 8.9 8.5 - 10.5 mg/dL LAB CHEMISTRY METHOD 01/22/2025 3:32 PM [facility] AST (SGOT) 23 10 - 42 unit/L LAB CHEMISTRY METHOD 01/22/2025 3:32 PM [facility] ALT (SGPT) 16 10 - 60 unit/L LAB CHEMISTRY METHOD 01/22/2025 3:32 PM [facility] Alkaline Phosphatase 109 42 - 121 unit/L LAB CHEMISTRY METHOD 01/22/2025 3:32 PM [facility] Total Protein 7.4 6.0 - 8.0 g/dL LAB CHEMISTRY METHOD 01/22/2025 3:32 PM [facility] Albumin 4.0 3.2 - 5.0 g/dL LAB CHEMISTRY METHOD 01/22/2025 3:32 PM [facility] Total Bilirubin 0.5 0.0 - 1.4 mg/dL LAB CHEMISTRY METHOD 01/22/2025 3:32 PM [facility] Blood Venous blood specimen / Unknown Venipuncture / Unknown 01/22/2025 12:19 PM EDT 01/22/2025 1:37 PM EDT us Kimberly Coburn [employer] LAB BLOOD ORDERABLES Final Res ult [facility] [address] [place] [address], [place] [phone] * MADHURI SCREENING DIGITAL (03/02/2024 3:26 PM EDT) Anatomical Region Laterality Modality Mammography 03/02/2024 12:5 7 PM EDT Narrative 03/02/2024 3:26 PM EDT [facility] Diagnostic Imaging Department [address] [place] [address] Patient: GUIROSA ELENA /Age/Sex: 1965 - 58 - F Unit#: [id number] [facility]/Ordering Site: [facility] Ordering Physician: WILMAR BARCENAS MD Madhuri Screening Digital - 03/02/24 - [id number] Report Status:Signed EXAM: SCREENING MAMMOGRAPHY, BILATERAL HISTORY: SCREENING. No additional history. COMPARISON: 11/20/2022, 11/17/2021, 11/13/2020, 11/10/2019 TECHNIQUE: Synthesized CC and MLO projections of each breast. Tomosynthesis of each breast in the CC and MLO projections. ADDITIONAL IMAGING: None Computer-aided detection was employed with the iCAD profound AI 3-D. TISSUE DENSITY: The breasts are heterogeneously dense, which may obscure small masses. (BI-RADS category C) FINDINGS: RIGHT BREAST: No suspicious mass. No suspicious calcification. No distortion. No change in the region of the biopsy site marker. LEFT BREAST: No suspicious mass. No suspicious calcification. No distortion. No additional suspicious left breast findings IMPRESSION: No mammographic evidence of malignancy. No suspicious interval change. A negative mammogram in the presence of a clinically suspicious palpable abnormality does not preclude the possibility of malignancy or alter the indications for biopsy. ASSESSMENT: BI-RADS 2: BENIGN RECOMMENDATION(S): 1: Routine screening mammogram BILATERAL in 1 year. Dictating Physician: Donna AVINA BRET MD Electronically Signed by: Donna AVINA BRET MD Dic Date/Time: 03/02/241520 Sign date/Time: 03/02/24 152 Procedure Note Will Avina MD - 03/04/2024 [facility] Diagnostic Imaging Department [address] [place] [address] Patient: ROSA ELENA MESSER [place] /Age/Sex: 1965 - 58 - F Unit#: [id number] Location/Status: [facility] Mnemonic/Ordering Site: [facility] Ordering Physician: WILMAR BARCENAS MD Madhuri Screening Digital - 03/02/24 - [id number] Report Status:Signed EXAM: SCREENING MAMMOGRAPHY, BILATERAL HISTORY: SCREENING. No additional history. COMPARISON: 11/20/2022, 11/17/2021, 11/13/2020, 11/10/2019 TECHNIQUE: Synthesized CC and MLO projections of each breast.Tomosynthesis of each breast in the CC and MLO projections. ADDITIONAL IMAGING: None Computer-aided detection was employed with the iCAD profound AI 3-D. TISSUE DENSITY: The breasts are heterogeneously dense, which may obscuresmall masses. (BI-RADS category C) FINDINGS: RIGHT BREAST: No suspicious mass. No suspicious calcification. No distortion. Nochange in the region of the biopsy site marker. LEFT BREAST: No suspicious mass. No suspicious calcification. No distortion. Noadditional suspicious left breast findings IMPRESSION: No mammographic evidence of malignancy. No suspicious interval change. A negative mammogram in the presence of a clinically suspicious palpable abnormality does not preclude the possibility of malignancy or alter the indications for biopsy. ASSESSMENT: BI-RADS 2: BENIGN RECOMMENDATION(S): 1: Routine screening mammogram BILATERAL in 1 year. Dictating Physician: Donna AVINA BRET MD Electronically Signed by: Donna AVINA BRET MD Dic Date/Time: 03/02/24 1521 Sign date/Time: 03/02/24 1526 Wilmar Barcenas MD IMG BI PROCEDURES Final Res ult from Last 3 Months or Most Recently Relevant to Health Maintenance Insurance [facility] [employer] Care Teams Quality Nurse Relationship Specialty Start Date End Date Herbert Randhawa PA [id number] [place] [phone] PCP - General Primary Care 10/02/24
== END 2025-03-08 12:24 | disposition home or self-care (01) ==
LOC: HO.HSM 12:09
PROVIDERS: PCP Internal Medicine; Referring Provider Internal Medicine; Visit Provider Registered Nurse
DX: G43.909 Migraine, unspecified, not intractable, without status migrainosus (principal)
CPT/HCPCS: 99213

== ENCOUNTER → 2025-03-08 12:09 | Outpatient (BNVA) | payer OTHER, SELFPAY | PROVIDERS: PCP Internal Medicine; Referring Provider Internal Medicine; Visit Provider Registered Nurse | DX: G43.909 Migraine, unspecified, not intractable, without status migrainosus (principal) | CPT/HCPCS: 99212 ==